=== PATIENT | male | born 1950 | race Caucasian/White ===

== ENCOUNTER 2022-05-16 16:37 | Inpatient (IN) | payer MEDICARE, OTHER, SELFPAY ==
[2022-05-16 16:43] VITALS: BP 175/108; PULSE 93; RESP 18; O2SAT 97; BMI 22.3
--- NOTE | 2022-05-16 16:47 | XRR_ITS ---
PROCEDURE INFORMATION: Exam: XR Left Hip Exam date and time: 05/16/2022 4:54 PM Age: 71 years old Clinical indication: Injury or trauma; Fall; Blunt trauma (contusions or hematomas); Left; Hip; Additional info: Eval FX, suspected hip FX TECHNIQUE: Imaging protocol: Radiologic exam of the Left hip. Views: 2 or 3 views hip with pelvis when performed. COMPARISON: No relevant prior studies available. FINDINGS: Bones/joints: Degenerative changes in the spine, sacroiliac joints, and hips. Mildly comminuted and mildly displaced inter trochanteric fracture of the left femur. No dislocation. Normal bone mineralization. Soft tissues: Mild soft tissue swelling around the proximal left femur. No radiopaque foreign body. XR/XR hip LT 2-3V wo/w pel* [id number] IMPRESSION: 1. Mildly comminuted and mildly displaced inter trochanteric fracture of the left femur. 2. Mild soft tissue swelling around the proximal left femur.
--- NOTE | 2022-05-16 17:02 | XR_ITS ---
WS: [id number] Exam: XR chest 1V portable [id number] Date/Time of Exam: 05/16/2022 5:05 PM Reason For Exam: PRE OP No priors. Findings: The lungs are clear and fully expanded. Costophrenic angles are sharp. No infiltrates. Bronchovascula r relief appears normal. Cardiac silhouette is unremarkable. Bony elements are intact. XR/XR chest 1V portable [id number] IMPRESSION: Unremarkable chest radiograph.
--- NOTE | 2022-05-16 17:13 | XRR_ITS ---
PROCEDURE INFORMATION: Exam: XR Left Femur Exam date and time: 05/16/2022 5:15 PM Age: 71 years old Clinical indication: Injury or trauma; Fall; Blunt trauma; Thigh or upper leg; Left; Additional info: Eval FX TECHNIQUE: Imaging protocol: Radiologic exam of the Left femur. Views: 2 views. COMPARISON: CR (PELVIS, ) 05/16/2022 4:54 PM FINDINGS: Bones/joints: Mild degenerative change at the left hip. Mildly comminuted and displaced intertrochanteric fracture of the left femur is stable. No dislocation. Normal bone mineralization. No joint effusion. Joint spaces are maintained. Soft tissues: Stable mild soft tissue swelling around the proximal left femur. No radiopaque foreign body. XR/XR femur LT 1V [id number] IMPRESSION: 1. Mildly comminuted and displaced intertrochanteric fracture of the left femur is stable. 2. Stable mild soft tissue swelling around the proximal left femur. 3. Incidental/nonacute findings are listed in the report.
[2022-05-16 17:28] LABS: Basophils % 0.6 %; Eosinophils # 0.1 10^3/uL (0.0-0.8); Eosinophils % 1.7 %; Hematocrit 44.1 % (42.0-52.0); Hemoglobin 14.6 g/dL (11.7-16.6); Lymphocytes # 1.5 10^3/uL (0.8-4.8); Lymphocytes % 21.9 %; Mean Corpuscular HGB Conc 33.1 g/dL (30.0-36.0); Mean Corpuscular Volume 90.6 fl (80-94); Mean Platelet Volume 11.1 fL (7.4-10.4); Monocytes # 0.5 10^3/uL (0.2-0.9); Monocytes % 7.4 %; Neutrophils # 4.77 10^3/uL (1.8-7.7); Neutrophils % 68.1 %; Nucleated Red Blood Cells % 0 %; Platelet Count 192 10^3/cmm (130-400); Red Blood Count 4.87 10^6/uL (4.1-5.3); Red Cell Distribution Width 11.8 % (12.1-15.1)
[2022-05-16 17:49] LABS: Anion Gap 15.2 (5-19); Blood Urea Nitrogen 16 mg/dL (8-23); Carbon Dioxide 27 mmol/L (22-29); Chloride 98 mmol/L (98-107); Glucose 221 mg/dL (65-115); Osmolality Calculated 290 mOsm/kg (285-295); Potassium 4.2 mmol/L (3.5-5.1); Sodium 136 mmol/L (136-145)
--- NOTE | 2022-05-16 17:53 | ED_ITS ---
HPI - Fall General: Chief Complaint: Fall Stated Complaint: LEFT HIP PAIN S/P FALL Time Seen by Provider: 05/16/22 16:41 History of Present Illness: 71-year-old male with past medical history of type 2 diabetes/prediabetes on metformin 5 mg twice daily, hypertension on lisinopril 10 mg daily, and pravastatin 40 mg daily, presents after falling off his tractor onto his left hip. He states he had immediate pain. This event occurred prior to arrival. Did not strike his head, chest, other areas of his body. Denies pain elsewhere. He has aching severe pain in his left hip, worse with movement, better with rest has not taken any pain medications at home for this. Associated symptoms-after fall: Denies abdominal pain, chest pain, headache(s) or neck pain Review of Systems General: Reports: 10 or more systems reviewed and unremarkable except in HPI and below Const: Denies: fever(s) or chills Eyes: Denies: change in vision or blurry vision ENMT: Denies: throat pain or uvular edema Card: Denies: chest pain or palpitations Resp: Denies: dyspnea or productive cough GI: Denies: abdominal pain, nausea or vomiting : Denies: flank pain or difficulty urinating Musc: Denies: neck pain or back pain Skin/Breast: Denies: rash or pruritus Neuro: Denies: headache(s) or numbness in extremities Physical Exam Const: COMMON NORMALS: no acute distress and average body habitus HENMT: COMMON NORMALS: normocephalic, atraumatic and Normal external nose present HEAD & SCALP: normocephalic and atraumatic FACE & SINUS: normal facial exam NOSE: Normal external nose present GENERAL EAR: hearing not grossly impaired MOUTH: Normal oral and palatal mucosa present THROAT: no uvular edema Eye: COMMON NORMALS: Equal, round and reactive pupils present, conjunctivae normal and no scleral icterus CONJUNCTIVA: Yes conjunctivae normal PUPIL: Yes Equal, round and reactive pupils present Neck/C-Spine: COMMON NORMALS: full ROM and no lymphadenopathy Chest: COMMONS NORMALS: normal inspection of the chest and normal palpation of entire chest wall Resp: COMMON NORMALS: normal respiratory effort and No retractions GI: COMMON NORMALS: Normal to inspection, nondistended, normoactive bowel sounds present and Soft to palpation PALPATION: Yes Soft to palpation Back/Pelvis: PELVIS: Yes buttocks normal Extremity: NARRATIVE EXTREMITY EXAM: Examination of left lower extremity demonstrates intact pulses, able to wiggle toes and flex and extend at the ankle and knee. Tense contracted muscle in the anterior proximal thigh. No enlarging hematoma on initial examination. Tenderness palpation of the greater trochanter of the left hip. Pelvis noncompressible. No tenderness of the right hip. Course Vital Signs: Vital signs: Vital Signs Pulse Rate 93 05/16/22 16:43 Respiratory Rate 18 05/16/22 16:43 Blood Pressure 175/108 05/16/22 16:43 Pulse Oximetry 97 05/16/22 16:43 Oxygen Delivery Me thod 05/16/22 16:43 MDM - Fall Medical Decision Making 71-year-old male with intertrochanteric hip fracture sustained during a fall without other sequelae of injury. Vitals nonactionable in the emergency department. Considered a large Heema Adolph, other fractures, pelvic injury, intra abdominal or retroperitoneal injury, thoracic injury, head injury, other traumatic injury sustained from a fall. Patient states he has no other injuries at this time other than pain in his left hip. New X-rays demonstrate hip fracture. On-call orthopedist Dr. Goodson consulted. Hospitalist Dr. Candelaria will admit this patient for pain control until surgery. Lab Data 05/16/22 17:07 05/16/22 17:07 Radiology Impressions Hip/Pelvis X-Ray 05/16/22 16:47 IMPRESSION: 1. Mildly comminuted and mildly displaced inter trochanteric fracture of the left femur. 2. Mild soft tissue swelling around the proximal left femur. Laboratory Results WBC 7.0 10^3/uL (4.0-10.0) 05/16/22 17:07 RBC 4.87 10^6/uL (4.1-5.3) 05/16/22 17:07 Hgb 14.6 g/dL (11.7-16.6) 05/16/22 17:07 Hct 44.1 % (42.0-52.0) 05/16/22 17:07 MCV 90.6 fl (80-94) 05/16/22 17:07 MCH 30.0 pg (28.0-34.0) 05/16/22 17:07 MCHC 33.1 g/dL (30.0-36.0) 05/16/22 17:07 RDW 11.8 % (12.1-15.1) L 05/16/22 17:07 Plt Count 192 10^3/cmm (130-400) 05/16/22 17:07 MPV 11.1 fL (7.4-10.4) H 05/16/22 17:07 Neut % (Auto) 68.1 % 05/16/22 17:07 Lymph % (Auto) 21.9 % 05/16/22 17:07 [place] % (Auto) 7.4 % 05/16/22 17:07 Eos % (Auto) 1.7 % 05/16/22 17:07 Baso % (Auto) 0.6 % 05/16/22 17:07 Neut # (Auto) 4.77 10^3/uL (1.8-7.7) 05/16/22 17:07 Lymph # (Auto) 1.5 10^3/uL (0.8-4.8) 05/16/22 17:07 [place] # (Auto) 0.5 10^3/uL (0.2-0.9) 05/16/22 17:07 Eos # (Auto) 0.1 10^3/uL (0.0-0.8) 05/16/22 17:07 Baso # (Auto) 0.0 10^3/uL (0.0-0.1) 05/16/22 17:07 Nucleated RBC % (auto) 0 % 05/16/22 17:07 Nucleated RBCs # 0.0 /100WBC 05/16/22 17:07 Sodium 136 mmol/L (136-145) 05/16/22 17:07 Potassium 4.2 mmol/L (3.5-5.1) 05/16/22 17:07 Chloride 98 mmol/L (98-107) 05/16/22 17:07 Carbon Dioxide 27 mmol/L (22-29) 05/16/22 17:07 Anion Gap 15.2 (5-19) 05/16/22 17:07 BUN 16 mg/dL (8-23) 05/16/22 17:07 Creatinine 0.8 mg/dL (0.7-1.2) 05/16/22 17:07 GFR Calculation Not Reportable 05/16/22 17:07 Glucose 221 mg/dL (65-115) H 05/16/22 17:07 Calculated Osmolality 290 mOsm/kg (285-295) 05/16/22 17:07 Calcium 10.0 mg/dL (8.5-10.5) 05/16/22 17:07 Discharge Plan Discharge Condition: Stable Prescriptions: No Action multivitamin Tablet 1 tab PO DAILY metformin 500 mg tablet 1,000 mg PO BID pravastatin 40 mg tablet 40 mg PO QAM Aspir-81 81 mg Tablet,Delayed Release (Dr/Ec) 81 mg PO DAILY@12 lisinopril 10 mg tablet 10 mg PO BEDTIME CoQ-10 100 mg Capsule 100 mg PO DAILY@12 sildenafil (pulm.hypertension) 20 mg tablet 20 - 80 mg PO PRN PRN (Reason: Erectile Dysfunction) red yeast rice 600 mg Tablet 600 mg PO TID Referrals: Laurent Roberson DO [Primary Care Provider] - Coding Level of Care Code ED Project Management Specialist for Ferming Lynda
[2022-05-16 18:30] VITALS: BP 160/95; PULSE 92; O2SAT 97
--- NOTE | 2022-05-16 18:45 | PC.NURSE ---
ATTEMPTED REPORT NURSE UNAVAILABLE.
--- NOTE | 2022-05-16 18:51 | PC.NURSE ---
REPORT GIVEN TO [facility]UM[facility]ARE.
[2022-05-16 19:04] VITALS: BP 148/95; PULSE 93; O2SAT 96
--- NOTE | 2022-05-16 19:08 | PC.NURSE ---
attempted to call report @ [phone]; receiving nurse will call back
[2022-05-16 19:23] VITALS: BP 148/95; PULSE 100; RESP 18; O2SAT 95
--- NOTE | 2022-05-16 20:20 | ECG_ITS ---
[facility] Test Date: 2022-05-17 Pat Name: Figueroa Garrett Department: Room: 262 Gender: Male System Sales Consultant: : 1950 Requested By: Duong Cobos Order Number: [id number] Hanny MD: Xena Cooney M.D. Measurements Intervals [place] Rate: 115 P: 52 NC: 143 QRS: -38 QRSD: 101 T: 61 QT: 302 QTc: 419 Interpretive Statements SINUS TACHYCARDIA LEFT AXIS DEVIATION [QRS AXIS < -30] INCOMPLETE RIGHT BUNDLE BRANCH BLOCK [90+ ms QRS DURATION, TERMINAL R IN V1/V2, 40+ ms S IN I/aVL/V4/V5/V6] No previous ECG available for comparison Electronically Signed On 05-17-2022 19:15:30 HOTEL FRONT DESK CLERK by Xena Cooney M.D. [email or web address] [email or web address] general [email or web address] [id number]
--- NOTE | 2022-05-16 20:21 | P.HP_ITS ---
Providers/Chief Complaint Admitting Physician: Duong Cobos Primary Care Provider: Laurent Roberson DO Chief Complaint: LEFT HIP PAIN S/P FALL History of Present Illness Pleasant 71-year-old gentleman was getting off the tractor when he somehow slipped off the step and fell on his left hip. He is found to have mildly comminuted and displaced intertrochanteric fracture of the left femur. Mild soft tissue swelling around the proximal left femur. Additional incidental sammie cute findings. She has otherwise been at baseline state of health, his chronic medical issues include hypertension, diabetes. Denies any other trauma. Aspirin 81 mg he takes prophylactically. Review of Systems Const: Denies: fever(s), chills, body aches or malaise Eyes: Denies: change in vision, eye discomfort or eye redness ENMT: Denies: throat pain, oral sores or ear or mastoid pain Card: Denies: chest pain, edema, pre-syncope or dyspnea on exertion Resp: Denies: dyspnea, productive cough, change in phlegm color or hemoptysis GI: Denies: abdominal pain, nausea, vomiting, diarrhea, constipation, hematochezia or melena : Denies: flank pain, difficulty urinating, urinary frequency or hematuria Musc: Denies: back pain, joint swelling or joint redness Skin/Breast: Denies: rash Neuro: Denies: headache(s) or confusion Endo: Denies: polyuria or polydipsia Martin/Lymph: Denies: easy bleeding Medications/Allergies Home Medications Medication Instructions Recorded Confirmed Last Taken Type aspirin 81 mg tablet,delayed 81 mg PO DAILY@05/16/22 05/16/22 05/16/22 History release coenzyme Q10 100 mg capsule 100 mg PO DAILY@05/16/22 05/16/22 05/16/22 History (CoQ-10) lisinopril 10 mg tablet 10 mg PO BEDTIME 05/16/22 05/16/22 05/15/22 History metformin 500 mg tablet 1,000 mg PO BID 05/16/22 05/16/22 05/16/22 08:00 History multivitamin 1 tab PO DAILY 05/16/22 05/16/22 Unknown History pravastatin 40 mg tablet 40 mg PO QAM 05/16/22 05/16/22 05/16/22 08:00 History red yeast rice 600 mg tablet 600 mg PO TID 05/16/22 05/16/22 05/16/22 12:00 History sildenafil (pulm.hypertension) 20 20 - 80 mg PO PRN PRN Erectile 05/16/22 05/16/22 Unknown History mg tablet Dysfunction Allergies Allergy/AdvReac Type Severity Reaction Status Date / Time No Known Allergies Allergy Verified 05/16/22 16:54 PFSH Acute PFSH: Medical History DM type 2 (diabetes mellitus, type 2) HTN (hypertension) Surgical History No significant past surgical history Family History Father CAD (coronary artery disease), Onset Age: 72 [place] Social History Smoking and tobacco status: never smoked Alcohol intake: never Substance/Drug Use: never Lives independently: Yes Household members: family Marital status: Vitals/I&O/Wt Last Vital Signs Pulse 100 05/16/22 19:23 Resp 18 05/16/22 19:23 BP 148/95 05/16/22 19:23 Pulse Ox 95 05/16/22 19:23 O2 Del Method 05/16/22 19:04 Weight last 48 hrs Weight 72.575 kg Physical Exam Narrative: and son at bedside Const: COMMON NORMALS: patient oriented x3 and alert GENERAL APPEARANCE: cooperative ORIENTATION/CONSCIOUSNESS: Yes awake HENMT: COMMON NORMALS: oropharynx normal Neck/C-Spine: COMMON NORMALS: no JVD Resp: COMMON NORMALS: normal respiratory effort and clear to auscultation bilaterally AUSCULTATION: clear to auscultation bilaterally Cardio: COMMON NORMALS: no JVD, regular rhythm, S1 normal heart sound present, S2 normal heart sound present and No murmurs present (Cardio) RHYTHM: regular rhythm HEART SOUNDS: S1 normal heart sound present and S2 normal heart sound present GI: COMMON NORMALS: Normal to inspection, nondistended, normoactive bowel sounds present, Soft to palpation and non-tender PALPATION: Yes Soft to palpation Extremity: COMMON NORMALS: no joint enlargement and no pedal edema OTHER: L hip without bruising or swelling. Leg appears perfused. Neuro: COMMON NORMALS: patient oriented x3 and moves all extremities SENSORIUM/ORIENTATION: Yes alert Skin: COMMON NORMALS: no rashes or lesions noted GENERAL SKIN EXAM: no rashes or lesions noted Data 05/16/22 17:07 05/16/22 17:07 A&P Assessment and plan (1) Intertrochanteric fracture of left hip: Discussed with ER physician. ER documentation reviewed. He would like to seek surgical repair possible, he is awaiting further assessment and discussion with orthopedics. He appears otherwise to have been at baseline state of health. He is active, without any dyspnea restricting his activity, denies any history of lung disease, heart disease. The 81 mg aspirin he takes is prophylactic. We will obtain EKG. Otherwise discussed with him slight ovation risk with DM2, HTN, but not much to optimize that should delay surgery. Monitor blood counts with risk of blood loss anemia possibly severe if bleeding into the thigh, also on aspirin, also with noted some soft tissue swelling around the proximal left femur on x-ray. Repeat hemoglobin requested. Hold lisinopril. N.p.o. tonight. 1 dose of heparin DVT prophylaxis in anticipation of surgery tomorrow. Further DVT prophylaxis after surgery. (2) DM type 2 (diabetes mellitus, type 2): A1c is 8.6. He states sugars ranging in 150s-160s usually. This morning it was 135. Monitor POC glucose while in the hospital with risk for hypoglycemia while n.p.o. and with insulin therapy. He takes metformin at home, mild sliding scale while in the hospital. CC diet (3) HTN (hypertension): Monitor blood pressures. Hold morning lisinopril anticipation of likely surgery. Attestations Medical Necessity Statement*: Admission of over 2 midnights anticipated for assessment management of left hip fracture and gentleman with underlying diabetes, hypertension. Other Coding Information Focused coding review requested Diagnoses Intertrochanteric fracture of left hip S72.142A DM type 2 (diabetes mellitus, type 2) E11.9 HTN (hypertension) I10
[2022-05-16 20:35] VITALS: BP 167/89; BP 173/95; PULSE 102; PULSE 97; RESP 17; RESP 18; TEMP 37.5; O2SAT 94; O2SAT 97
[2022-05-16] MEDS: HYDROcodone-acetaminophen 5-325 mg Tablet 1 TAB PO (22:15)
[2022-05-16 22:23] LABS: Glucose Point of Care 283 mg/dL (70-110)
[2022-05-16 22:57] LABS: Glucose Point of Care 303 mg/dL (70-110)
[2022-05-16] MEDS: heparin 5,000 unit/mL INJ 1 mL 5000 UNIT SUBCUT (22:59)
[2022-05-16] MEDS: insulin lispro 100 unit/1 mL SUBCUT (22:59)
[2022-05-17] VITALS (16 sets, daily range): BP systolic 128–164; BP diastolic 73–105; PULSE 90–123; RESP 14–94; TEMP 36.2–36.9; O2SAT 94–99
--- NOTE | 2022-05-17 | XR_ITS ---
WS: [id number] Exam: XR hip LT 2-3V wo/w pel* [id number] Date/Time of Exam: 05/17/2022 12:00 AM Reason For Exam: ORIF left hip Intraoperative C-arm images of the left hip are submitted for evaluation. An intertrochanteric fracture of the left hip is stabilized with an intramedullary brett and femoral ne ck screw. Alignment is satisfactory for healing. XR/XR hip LT 2-3V wo/w pel* [id number] IMPRESSION: 1. ORIF involving an intertrochanteric fracture of the left hip in satisfactory position for healing.
[2022-05-17 01:36] LABS: Add Urine Microscopic? NO; Charge for UA Resulting for Rev
[2022-05-17 01:59] LABS: Bilirubin Urine Neg (Negative); Blood Urine Neg (Negative); Glucose Urine UA 4+ (Normal); Ketones Urine Negative (Negative); Leukocyte Esterase Urine Negative (Negative); Nitrate Urine Negative (Negative); Protein Urine Neg (Negative); Urine Appearance Clear (CLEAR); Urine Color Yellow (Yellow); Urobilinogen Urine Neg (Negative); pH Urine 7 (5-7)
[2022-05-17 04:18] LABS: Basophils % 0.4 %; Eosinophils # 0.1 10^3/uL (0.0-0.8); Eosinophils % 0.5 %; Hematocrit 41.5 % (42.0-52.0); Lymphocytes # 2.2 10^3/uL (0.8-4.8); Mean Corpuscular HGB Conc 33.7 g/dL (30.0-36.0); Mean Corpuscular Hemoglobin 30.4 pg (28.0-34.0); Mean Platelet Volume 11.3 fL (7.4-10.4); Monocytes % 9.9 %; Neutrophils # 6.63 10^3/uL (1.8-7.7); Nucleated Red Blood Cells % 0 %; Platelet Count 182 10^3/cmm (130-400); Red Blood Count 4.61 10^6/uL (4.1-5.3); Red Cell Distribution Width 11.9 % (12.1-15.1); White Blood Count 9.9 10^3/uL (4.0-10.0)
[2022-05-17 04:45] LABS: Anion Gap 14.1 (5-19); Blood Urea Nitrogen 13 mg/dL (8-23); Calcium 9.6 mg/dL (8.5-10.5); Carbon Dioxide 24 mmol/L (22-29); Chloride 105 mmol/L (98-107); Glucose 159 mg/dL (65-115); Osmolality Calculated 291 mOsm/kg (285-295); Potassium 4.1 mmol/L (3.5-5.1); Sodium 139 mmol/L (136-145)
[2022-05-17] MEDS: atorvastatin 40 mg Tablet PO (05:13)
[2022-05-17 07:17] LABS: Glucose Point of Care 148 mg/dL (70-110)
[2022-05-17] MEDS: insulin lispro 100 unit/1 mL SUBCUT ×3 (08:01→21:10)
--- NOTE | 2022-05-17 10:17 | PC.CHAP ---
Pastoral Care Encounter/Spiritual Assessment Type of Contact [] Declined cane flume chute operator visit [] Patient/Family/Request visit [] Outpatient visit [] Follow-up visit [] Physician referral [] Code/Alert [x] Routine visit [] Staff referral [] Actively dying [] Patient sleeping [x] Family support [] [] Out of room [] Palliative care [] [] Receiving care in room [] Pre-surgical visit [] Trauma [] Long length of stay [] ICU visit [] Other: Relational/Emotional Strength [x] Patient feels connected with others/family/visitors/staff [] Distress [] Loneliness/isolation [] Abandonment Spirituality of Patient [x] Person of Eloina [x] Attends Mandaen of their Elo[place] [x] Believes in Prayer [] Reads Bible or Sabianism materials [] There are Spiritual issues to be addressed Carpenter Interventions [x] Prayer [x] Active listening [] Non-anxious presence [] Spiritual/emotional support [] Crisis/trauma care [] Spiritual counseling [] Bereavement support [] Provided bereavement packet [] Provided Bible/devotional materials [] Provided toy/stuffed animal, coloring book to patient or family member [] Provided Communion [] Anointing/[place] [] Salvation [x] Completed spiritual assessment [] Other: Impact on Illness or Injury [] Angry [] Fearful [] Anxious [] Often cries [] Exhaustion [] Unable to work [] Unable to attend taoism [] Unable to walk/stand [] Unable to read [] Unable to drive [] Unable to eat/drink [] Unable to sleep [] Unable to be with family [] Patient intubated [] Other: Summary Time spent with patient 5 min
[2022-05-17 10:58] LABS: Glucose Point of Care 181 mg/dL (70-110)
[2022-05-17] MEDS: morphine 4 mg/mL SDV 1 mL 2 MG IVP (12:59)
--- NOTE | 2022-05-17 13:24 | PM.CONSULT ---
Providers/Reason For Consult Consulting Physician/Specialty*: Milli Ventura MD Reason for Consult*: Left intertrochanteric hip fracture, comminuted Requesting Physician: Dr. Santos Alexander Attending Physician: Sue Dasilva MD Primary Care Provider: Laurent Roberson DO History of Present Illness History of Present Illness Figueroa Garrett is a 71 year old male who was in his usual state of health when he fell from the wheel of his tractor while placing fuel into it. He was admitted through the emergency department with a comminuted slightly displaced intertrochanteric fracture of the proximal femur. The patient denies other significant medical injury. He denies any reason for his fall other than slipping from the tractor wheel. Review of Systems General: Reports: 10 or more systems reviewed and unremarkable except in HPI and below Const: Denies: fever(s), chills, body aches or malaise Eyes: Denies: change in vision, blurry vision, eye discomfort or eye redness ENMT: Denies: throat pain, oral sores or ear or mastoid pain Card: Denies: chest pain, palpitations, edema, pre-syncope or dyspnea on exertion Resp: Denies: dyspnea, productive cough, change in phlegm color or hemoptysis GI: Denies: abdominal pain, nausea, vomiting, diarrhea, constipation, hematochezia or melena : Denies: flank pain, difficulty urinating, urinary frequency or hematuria Musc: Denies: neck pain, back pain, joint swelling or joint redness Skin/Breast: Denies: rash or pruritus Neuro: Denies: headache(s), numbness in extremities or confusion Endo: Denies: polyuria or polydipsia Martin/Lymph: Denies: easy bleeding Medications/Allergies Home Medications Medication Instructions Recorded Confirmed Last Taken Type aspirin 81 mg tablet,delayed 81 mg PO DAILY@05/16/22 05/16/22 05/16/22 History release coenzyme Q10 100 mg capsule 100 mg PO DAILY@05/16/22 05/16/22 05/16/22 History (CoQ-10) lisinopril 10 mg tablet 10 mg PO BEDTIME 05/16/22 05/16/22 05/15/22 History metformin 500 mg tablet 1,000 mg PO BID 05/16/22 05/16/22 05/16/22 08:00 History multivitamin 1 tab PO DAILY 05/16/22 05/16/22 Unknown History pravastatin 40 mg tablet 40 mg PO QAM 05/16/22 05/16/22 05/16/22 08:00 History red yeast rice 600 mg tablet 600 mg PO TID 05/16/22 05/16/22 05/16/22 12:00 History sildenafil (pulm.hypertension) 20 20 - 80 mg PO PRN PRN Erectile 05/16/22 05/16/22 Unknown History mg tablet Dysfunction Allergies Allergy/AdvReac Type Severity Reaction Status Date / Time No Known Allergies Allergy Verified 05/16/22 16:54 Current Medications Generic Name Dose Route Start Last Admin Trade Name Freq PRN Reason Stop Dose Admin Hydrocodone Bitart/Acetaminophen 1 tab 05/16/22 20:35 05/16/22 22:15 Hydrocodone-Acetaminophen 5-325 Mg Tablet PO 1 tab Q4H PRN Administration MODERATE TO SEVERE PAIN Atorvastatin Calcium 40 mg 05/17/22 06:00 05/17/22 05:13 Atorvastatin 40 Mg Tablet PO 40 mg QAM DAO Administration Insulin Human Lispro 0 unit 05/16/22 21:00 05/17/22 12:07 Insulin Lispro 100 Unit/1 Ml SUBCUT 6 unit WM&BEDTIME DAO Administration Protocol Morphine Sulfate 2 mg 05/16/22 20:35 05/17/22 12:59 Morphine 4 Mg/Ml Sdv 1 Ml IVP 2 mg Q4H PRN Administration SEVERE PAIN PFSH Acute PFSH: Medical History DM type 2 (diabetes mellitus, type 2) HTN (hypertension) Surgical History No significant past surgical history Family History Father CAD (coronary artery disease), Onset Age: 72 [place] Social History Smoking and tobacco status: never smoked Alcohol intake: never Substance/Drug Use: never Lives independently: Yes Household members: family Marital status: Vitals/I&O/Wt Last Vital Signs Temp 98.5 F 05/17/22 07:45 Pulse 106 H 05/17/22 07:45 Resp 20 H 05/17/22 12:59 BP 150/87 05/17/22 07:45 Pulse Ox 95 05/17/22 07:45 O2 Del Method 05/17/22 12:00 Weight last 48 hrs Weight 160 lb Physical Exam Const: COMMON NORMALS: no acute distress, average body habitus, patient oriented x3 and alert GENERAL APPEARANCE: cooperative and comfortable ORIENTATION/CONSCIOUSNESS: Yes awake HENMT: COMMON NORMALS: normocephalic and atraumatic HEAD & SCALP: normocephalic and atraumatic Eye: GENERAL EYE: appearance normal, both eyes and all related structures Chest: COMMONS NORMALS: normal inspection of the chest Resp: COMMON NORMALS: normal respiratory effort EFFORT & INSPECTION: Yes able to speak in complete sentences and Yes symmetric chest movement Extremity: LEFT LOWER EXTREMITY: Yes hip joint (Tender to any range of motion.) Left hip: Yes inspection (No significant bruising.), Yes palpation (Tender over hip.) and Yes neurovascular exam (Intact distally with no evidence of DVT.) Neuro: COMMON NORMALS: patient oriented x3 SENSORIUM/ORIENTATION: Yes alert Psych: COMMON NORMALS: mental status grossly normal APPEARANCE: Yes grossly normal ATTITUDE: Yes calm and Yes engaged ATTENTION/CONCENTRATION: Yes attention grossly intact Skin: COMMON NORMALS: no rashes or lesions noted GENERAL SKIN EXAM: no rashes or lesions noted Data 05/17/22 03:02 05/17/22 03:02 Xray Ortho: My impression: X-rays were personally reviewed by me, an AP pelvis along with left hip demonstrates there is a comminuted intratrochanteric hip fracture. There is minimal displacement as well as minimal angulation. Other data: Laboratory is reviewed, and there are no significant abnormal findings. Glucose is 4+ in the urine with a high nonfasting glucose as well. A&P Assessment and plan (1) Intertrochanteric fracture of left hip: Patient was admitted through the emergency department last evening after falling from his tractor onto his left hip. In the emergency department, he was found to have a minimally comminuted and slightly displaced left intertrochanteric hip fracture. He was unable to ambulate, and I was asked to see the patient for evaluation for possible surgical intervention. The patient is seen in the room with his family. Risks and complications of surgery are discussed. Questions were answered. Evaluation is undertaken. The patient understands that we will be performing a gamma nail to the left hip. He has consented for the surgical procedure. Qualifiers: Encounter type: initial encounter Fracture type: closed Fracture alignment: displaced Qualified Code(s): S72.142A - Displaced intertrochanteric fracture of left femur, initial encounter for closed fracture Consult Attestations Medical Necessity Statement: Ongoing care for left intertrochanteric hip fracture. Coding Level of Care Code Acute Code for [facility] Diagnoses Intertrochanteric fracture of left hip S72.142A Encounter type: initial encounter Fracture type: closed Fracture alignment: displaced
[2022-05-17 15:57] LABS: Glucose Point of Care 114 mg/dL (70-110)
--- NOTE | 2022-05-17 15:58 | P.ANESASSM_ITS ---
Pre-Anesthetic Assessment Height/Weight: Height 1.8 m Weight 72.575 kg Temp Pulse Resp BP Pulse Ox O2 Del Method 97.6 F 111 H 15 128/78 95 05/17/22 15:51 05/17/22 15:51 05/17/22 15:51 05/17/22 15:51 05/17/22 15:51 05/17/22 15:51 Preop Diagnosis: Left intertrochanteric hip fracture Operation Date: 05/17/22 16:30 Proposed Procedures p Trochanteric Femoral Nail(Left) - Milli Ventura MD Familial anesthetic complications: None Was Beta Jerel taken within 24 hours: N/A Was Clonidine taken within 24 hours: N/A Last intake: > 8hrs Social No alcohol and No tobacco Exam alert, oriented x 3, clear to auscultation bilaterally and regular rate & rhythm Airway Mallampati: Class II Dentition: full Pulmonary None reported CV/HEM Hypertension able to avheive > 4 METS Metabolic Diabetes Mellitus and Hyperlipidemia Anesthetic Plan ASA status: 2 Anesthesia: General Risk of > 500 ml blood loss (7ml/kg in children): No Medications/Allergies Home Medications Medication Instructions Recorded Confirmed Last Taken Type aspirin 81 mg tablet,delayed 81 mg PO DAILY@12 05/16/22 05/16/22 05/16/22 History release coenzyme Q10 100 mg capsule 100 mg PO DAILY@12 05/16/22 05/16/22 05/16/22 History (CoQ-10) lisinopril 10 mg tablet 10 mg PO BEDTIME 05/16/22 05/16/22 05/15/22 History metformin 500 mg tablet 1,000 mg PO BID 05/16/22 05/16/22 05/16/22 08:00 History multivitamin 1 tab PO DAILY 05/16/22 05/16/22 Unknown History pravastatin 40 mg tablet 40 mg PO QAM 05/16/22 05/16/22 05/16/22 08:00 History red yeast rice 600 mg tablet 600 mg PO TID 05/16/22 05/16/22 05/16/22 12:00 History sildenafil (pulm.hypertension) 20 20 - 80 mg PO PRN PRN Erectile 05/16/22 05/16/22 Unknown History mg tablet Dysfunction Allergies Allergy/AdvReac Type Severity Reaction Status Date / Time No Known Allergies Allergy Verified 05/16/22 16:54 Current Medications Generic Name Dose Route Start Last Admin Trade Name Freq PRN Reason Stop Dose Admin Hydrocodone Bitart/Acetaminophen 1 tab 05/16/22 20:35 05/16/22 22:15 Hydrocodone-Acetaminophen 5-325 Mg Tablet PO 1 tab Q4H PRN Administration MODERATE TO SEVERE PAIN Atorvastatin Calcium 40 mg 05/17/22 06:00 05/17/22 05:13 Atorvastatin 40 Mg Tablet PO 40 mg QAM DAO Administration Insulin Human Lispro 0 unit 05/16/22 21:00 05/17/22 12:07 Insulin Lispro 100 Unit/1 Ml SUBCUT 6 unit WM&BEDTIME DAO Administration Protocol Morphine Sulfate 2 mg 05/16/22 20:35 05/17/22 12:59 Morphine 4 Mg/Ml Sdv 1 Ml IVP 2 mg Q4H PRN Administration SEVERE PAIN PFSH Anesthesia Medical History DM type 2 (diabetes mellitus, type 2) HTN (hypertension) Surgical History No significant past surgical history Family History Father CAD (coronary artery disease), Onset Age: 72 [place] Social History Smoking and tobacco status: never smoked Alcohol intake: never Substance/Drug Use: never Lives independently: Yes Household members: family Marital status: Data Anesthesia 05/17/22 03:02 05/17/22 03:02 Short CBC 05/16/22 05/17/22 Range/Units 17:07 03:02 WBC 7.0 9.9 (4.0-10.0) 10^3/uL Hgb 14.6 14.0 (11.7-16.6) g/dL Hct 44.1 41.5 L (42.0-52.0) % MCV 90.6 90.0 (80-94) fl Plt Count 192 182 (130-400) 10^3/cmm Neut % (Auto) 68.1 67.0 % Neut # (Auto) 4.77 6.63 (1.8-7.7) 10^3/uL BMP 05/16/22 05/17/22 17:07 03:02 Sodium 136 139 Potassium 4.2 4.1 Chloride 98 105 Carbon Dioxide 27 24 BUN 16 13 Creatinine 0.8 0.9 Glucose 221 H 159 H Calcium 10.0 9.6 Urine 05/17/22 Range/Units 01:08 Urine Color Yellow (Yellow) Urine Appearance Clear (CLEAR) Urine pH 7 (5-7) Ur Specific [place] 1.010 (1.005-1.030) Urine Protein Neg (Negative) Urine Glucose (UA) 4+ H (Normal) Urine Ketones Negative (Negative) Urine Nitrate Negative (Negative) Urine Bilirubin Neg (Negative) Ur Leukocyte Esterase Negative (Negative) Cardiac Studies: No Data to Display
[2022-05-17] MEDS: gabapentin 300 mg Capsule PO (16:09)
[2022-05-17] MEDS: lactated ringers 500 ML IV (16:09)
[2022-05-17] MEDS: acetaminophen 1,000 MG/100 ML PIGGYBACK 400 MG IV (16:09)
[2022-05-17] MEDS: CELEcoxib 200 mg Capsule 400 MG PO (16:09)
[2022-05-17] MEDS: ceFAZolin 2,000 MG in sodium chloride 0.9% (plus) 50 ML 100 MG IV (16:52)
--- NOTE | 2022-05-17 16:58 | PM.PN ---
Subjective Subjective: No new complaints today. Seen prior to being taken for OR. States that pain is currently under well control. Vitals/I&O/Wt Last Vital Signs Temp 98.4 F 05/17/22 15:59 Pulse 115 H 05/17/22 15:59 Resp 18 05/17/22 15:59 BP 164/105 05/17/22 15:59 Pulse Ox 96 05/17/22 15:59 O2 Del Method 05/17/22 15:59 05/17/22 05/17/22 05/17/22 06:59 14:59 22:59 Intake Total 100 / 100 Balance 100 / 100 Weight last 48 hrs Weight 72.575 kg Physical Exam Narrative: General: No acute distress, AO x3 HEENT: PERRLA, pupils bilaterally equal and reactive, pallors not present Chest: Normal vesicular breath sounds, no added sounds, equal good air entry bilaterally CVS: S1-S2 regular, no murmurs, no tachycardia, no gallops, no rubs Abdomen: Soft, nontender, no organomegaly, bowel sounds present Neuro: No focal deficits, no facial deformity, AO x3, power 5/5 in all limbs Data 05/17/22 03:02 05/17/22 03:02 A&P Assessment and plan (1) Intertrochanteric fracture of left hip: Plan to be taken to the OR this evening. He appears otherwise to have been at baseline state of health. He is active, without any dyspnea restricting his activity, denies any history of lung disease, heart disease. The 81 mg aspirin he takes is prophylactic. We will obtain EKG. Otherwise discussed with him slight ovation risk with DM2, HTN, but not much to optimize that should delay surgery. Monitor blood counts with risk of blood loss anemia possibly severe if bleeding into the thigh, also on aspirin, also with noted some soft tissue swelling around the proximal left femur on x-ray. Repeat hemoglobin requested. Hold lisinopril. N.p.o. tonight. 1 dose of heparin DVT prophylaxis in anticipation of surgery tomorrow. Further DVT prophylaxis after surgery. Qualifiers: Encounter type: initial encounter Fracture type: closed Fracture alignment: displaced Qualified Code(s): S72.142A - Displaced intertrochanteric fracture of left femur, initial encounter for closed fracture (2) DM type 2 (diabetes mellitus, type 2): A1c is 8.6. He states sugars ranging in 150s-160s usually. This morning it was 135. Monitor POC glucose while in the hospital with risk for hypoglycemia while n.p.o. and with insulin therapy. He takes metformin at home, mild sliding scale while in the hospital. CC diet (3) HTN (hypertension): Monitor blood pressures. Hold morning lisinopril anticipation of likely surgery. Attestations Medical Necessity Statement*: Surgical fixation for his fracture today Coding Level of Care Code Acute Code for Chg Fwd Straight Forward/Low MDM includes number and complexity of problems actively addressed during encounter, amount and/or complexity of data reviewed/ordered and described risk of complication, morbidity or mortality of management as documented Diagnoses Intertrochanteric fracture of left hip S72.142A Encounter type: initial encounter Fracture type: closed Fracture alignment: displaced DM type 2 (diabetes mellitus, type 2) E11.9 HTN (hypertension) I10
[2022-05-17] MEDS: ceFAZolin 1,000 mg SDV 1000 MG IRRIGATION (17:49)
--- NOTE | 2022-05-17 18:40 | P.OP_ITS ---
Operative Report Date of procedure: May 17, 2022 Pre-op diagnosis: Left intertrochanteric hip fracture Post-op diagnosis: Left intertrochanteric hip fracture Procedure done: Open reduction internal fixation of the left intertrochanteric hip fracture Implants: Deniz gamma 3 trochanteric nail size 11 mm x 180 mm x 125 degrees with a 10.5 mm x 105 mm lag screw and a distal 5 mm x 40 mm distal locking screw Pathology: none sent Surgeon: Milli Ventura Inspector Aluminum Boat: None Anesthesia: General (Per LMA, ASA 3) Estimated blood loss (mL): 50 IV fluids (mL): 800 Urine output (mL): 300 Complications: None Findings: Mildly displaced and angulated left intertrochanteric hip fracture with slight comminution Condition: stable Disposition: PACU (Then return to floor for postoperative rehabilitation) Brief History: Figueroa Garrett is a 71 year old male who was in his usual state of health when he fell from the wheel of his tractor while placing fuel into it.? He was admitted through the emergency department with a comminuted slightly displaced intertrochanteric fracture of the proximal femur.? The patient denies other significant medical injury.? He denies any reason for his fall other than slipping from the tractor wheel. The patient was seen in his room with his family prior to the surgical procedure. Risks and complications of the surgery were discussed as well as surgical options. The patient was consented for the surgery and consents were signed. Procedure: Patient was brought to the operating theater. After undergoing adequate general anesthesia with LMA, ASA 3, the patient was transferred to the fracture table, positioned on the table and fluoroscopic guidance obtained throughout the surgical procedure. Prior to the commencement of the surgical procedure, a surgical pause was performed. At the time of the surgical pause, we confirmed the site and side of surgery as well as preoperative surgical markings and appropriate and timely administration of IV antibiotics, Ancef 2 gm. Availability of equipment was also confirmed. Fluoroscopy was used to confirm the fracture was appropriately reduced in both AP and lateral planes. An incision was then made slightly above the greater trochanter to allow access to the greater trochanter. An awl was used to enter the greater trochanter, and a guidewire was subsequently placed. Once the guidewire was confirmed to be in appropriate position in AP and lateral planes, reaming was accomplished over this to allow for the proximal diameter of the nail.? Guidewire was then removed and an 11 mm nail was placed into appropriate position with positioning being confirmed in AP and lateral planes on the x-ray. It passed without difficulty. Guidewire was then passed through the jigging system into the femoral head. We wanted to be center or slightly inferior and posterior to center. Guidewire was placed into appropriate position. Once the guidewire was in appropriate position, this position was confirmed by x-ray.? This was then measured and we chose a 10.5 mm by 105 mm lag screw.? We reamed to allow for the lag screw to be placed. The 105 mm lag screw was then passed into the femoral head through the trochanteric nail. This was passed uneventfully and again position was confirmed in AP and lateral planes. Compression was obtained under fluoroscopic guidance.? The set screw was then placed in position, tightened completely, and subsequently backed off one-quarter turn. The construct was left in position and attention was directed distally. Cannulas were again used to determine appropriate placement for the distal screw. This was placed in position without difficulty. It was measured off of the drill. The appropriate length screw was then obtained and placed in position without difficulty. Once the screw was in position, we confirmed appropriate placement of the components, and we removed the jigging system. Attention was then directed to closure. The hip was copiously irrigated with normal saline with antibiotics. Following this it was dried and closed. Incision was injected with half percent bupivacaine with epinephrine. Tensor fascia elvia was closed proximally with 0 Vicryl in an interrupted fashion. Subcutaneous tissues were closed with 2-0 Monocryl, and the skin was closed with a continuous 3-0 Monocryl subcuticular stitch. This was then covered with Tegaderm. The patient was removed from the fracture table and returned to recovery in satisfactory condition. The patient will be discharged to the floor for postoperative rehabilitation and pain management. There were no specimens obtained. Related Problem List Diagnoses (1) Intertrochanteric fracture of left hip:
--- NOTE | 2022-05-17 19:00 | ANE.PACU2 ---
Inpatient post-anesthesia follow up: Airway intact: Yes Vital signs: Temperature 97.6 F Pulse Rate 98 Respiratory Rate 16 Blood Pressure 120/77 Pulse Oximetry 96 Oxygen Delivery Me thod Room Air Oxygen Flow Rate 6 Fraction of Inspir ed Oxygen Hydration adequate: Yes Nausea and vomiting: No Pain level: 1 Mental status: Baseline
--- NOTE | 2022-05-17 19:16 | SUR.PHASEI ---
1835 SCD to right leg and foot pump to left leg. Both on pump and pump working.
[2022-05-17 21:00] LABS: Glucose Point of Care 212 mg/dL (70-110)
[2022-05-17] MEDS: oxyCODONE 5 mg IR Tab/Cap PO (21:10)
[2022-05-17 21:36] LABS: Glucose Point of Care 223 mg/dL (70-110)
[2022-05-18] VITALS: BP 132/79; PULSE 85; RESP 16; TEMP 36.9; O2SAT 91
[2022-05-18] MEDS: acetaminophen 500 mg Tablet 1000 MG PO ×2 (01:17→08:05)
[2022-05-18] MEDS: ceFAZolin 2,000 MG in sodium chloride 0.9% (plus) 50 ML 100 MG IV ×2 (01:18→08:04)
[2022-05-18 04:00] VITALS: BP 120/77; PULSE 98; RESP 16; TEMP 36.4; O2SAT 96
[2022-05-18 05:23] LABS: Basophils % 0.2 %; Hematocrit 40.2 % (42.0-52.0); Hemoglobin 13.2 g/dL (11.7-16.6); Lymphocytes # 1.2 10^3/uL (0.8-4.8); Lymphocytes % 10.4 %; Mean Corpuscular HGB Conc 32.8 g/dL (30.0-36.0); Mean Corpuscular Hemoglobin 29.8 pg (28.0-34.0); Mean Corpuscular Volume 90.7 fl (80-94); Mean Platelet Volume 11.1 fL (7.4-10.4); Monocytes # 0.8 10^3/uL (0.2-0.9); Monocytes % 6.6 %; Neutrophils # 9.56 10^3/uL (1.8-7.7); Neutrophils % 82.5 %; Nucleated Red Blood Cells % 0 %; Platelet Count 162 10^3/cmm (130-400); Red Blood Count 4.43 10^6/uL (4.1-5.3); Red Cell Distribution Width 11.7 % (12.1-15.1); White Blood Count 11.6 10^3/uL (4.0-10.0)
[2022-05-18 05:49] LABS: Anion Gap 18.4 (5-19); Blood Urea Nitrogen 13 mg/dL (8-23); Carbon Dioxide 19 mmol/L (22-29); Chloride 102 mmol/L (98-107); Glucose 199 mg/dL (65-115); Osmolality Calculated 286 mOsm/kg (285-295); Potassium 4.4 mmol/L (3.5-5.1); Sodium 135 mmol/L (136-145)
[2022-05-18] MEDS: atorvastatin 40 mg Tablet PO (05:50)
[2022-05-18 06:22] LABS: Glucose Point of Care 182 mg/dL (70-110)
[2022-05-18 06:36] LABS: Glucose Point of Care 185 mg/dL (70-110)
[2022-05-18 08:00] VITALS: BP 136/86; PULSE 92; RESP 17; O2SAT 95
[2022-05-18] MEDS: insulin lispro 100 unit/1 mL SUBCUT ×2 (08:04→12:34)
[2022-05-18] MEDS: aspirin 325 mg EC Tablet PO (08:05)
[2022-05-18] MEDS: multivitamin therapeutic Tablet 1 TAB PO (08:05)
[2022-05-18] MEDS: CELEcoxib 200 mg Capsule PO (08:05)
[2022-05-18 09:37] VITALS: RESP 14
[2022-05-18] MEDS: oxyCODONE 5 mg IR Tab/Cap PO (09:37)
[2022-05-18 11:29] LABS: Glucose Point of Care 394 mg/dL (70-110)
[2022-05-18 11:29] LABS: Glucose Point of Care 385 mg/dL (70-110)
[2022-05-18 11:34] VITALS: BP 138/78; PULSE 113; RESP 17; TEMP 36.8; O2SAT 96
--- NOTE | 2022-05-18 14:30 | P.DS_ITS ---
Discharge Providers Date of Admission: 05/16/22 17:50 Date of Discharge: May 18, 2022 Attending Provider at Admission: Duong Cobos Attending Provider at Discharge: Sue Dasilva MD Consults: Milli Ventura MD, orthopedics Primary Care Provider: Laurent Roberson DO Diagnoses at Discharge Discharge Diagnosis (1) Intertrochanteric fracture of left hip: Status: Acute Qualifiers: Encounter type: initial encounter Fracture type: closed Fracture alignment: displaced Qualified Code(s): S72.142A - Displaced intertrochanteric fracture of left femur, initial encounter for closed fracture Reason for Visit Reason for Visit: LEFT HIP PAIN S/P FALL Brief History: Pleasant 71-year-old gentleman was getting off the tractor when he somehow slipped off the step and fell on his left hip.? He is found to have mildly comminuted and displaced intertrochanteric fracture of the left femur.? Mild soft tissue swelling around the proximal left femur.? Additional incidental nonacute findings. She has otherwise been at baseline state of health, his chronic medical issues include hypertension, diabetes. Denies any other trauma. Aspirin 81 mg he takes prophylactically. Hospital Course Hospital Course Patient was admitted to the hospital for intertrochanteric fracture of the left femur. He underwent open reduction internal fixation with Dr. Goodson on May 17, 2022. He tolerated the procedure well. No acute perioperative complications. Hemoglobin remained stable. He was able to participate with physical therapy and has been recommended a home exercise program at discharge. Patient was noted to be ambulating independently within the room. He is being discharged today in stable condition. Can continue his home doses of aspirin, lisinopril, metformin and statins at discharge. Physical Exam Narrative: General: No acute distress, AO x3 HEENT: PERRLA, pupils bilaterally equal and reactive, pallors not present Chest: Normal vesicular breath sounds, no added sounds, equal good air entry bilaterally CVS: S1-S2 regular, no murmurs, no tachycardia, no gallops, no rubs Abdomen: Soft, nontender, no organomegaly, bowel sounds present Neuro: No focal deficits, no facial deformity, AO x3, power 5/5 in all limbs Urinary Catheter Management: Carl: Cath Placed During This Visit: yes, but has since been removed by the nurse Reason for Continuing Indwelling Catheter: Perioperative Use in Selected Surgeries Urinary Catheter Date of Insertion: 05/17/22 Urinary Catheter Time of Insertion: 17:10 Date Urinary Catheter Removed: 05/18/22 Time Urinary Catheter Discontinued: 06:30 Discharge Data Studies Completed and Pending Completed Studies During Hospitalization Category Date Time Status CXRP [XR chest 1V portable [id number]] Stat Exams 05/16/22 17:02 Completed XR femur LT 1V [id number] Stat Exams 05/16/22 17:13 Completed XR hip LT 2-3V wo/w pel* [id number] Routine Exams 05/17/22 Completed XR hip LT 2-3V wo/w pel* [id number] Stat Exams 05/16/22 16:47 Completed Pending at discharge Category Date Time Status C-arm Fluoroscopy [id number] Routine Exams 05/17/22 15:57 Taken Basic Metabolic Panel AM LABS Lab 05/19/22 04:00 Ordered Complete Blood Count w/Auto AM LABS Lab 05/19/22 04:00 Ordered Radiology Impressions Chest X-Ray 05/16/22 17:02 IMPRESSION: Unremarkable chest radiograph. Femur X-Ray 05/16/22 17:13 IMPRESSION: 1. Mildly comminuted and displaced intertrochanteric fracture of the left femur is stable. 2. Stable mild soft tissue swelling around the proximal left femur. 3. Incidental/nonacute findings are listed in the report. Hip/Pelvis X-Ray 05/17/22 00:00 IMPRESSION: 1. ORIF involving an intertrochanteric fracture of the left hip in satisfactory position for healing. Laboratory Results WBC 11.6 10^3/uL (4.0-10.0) H 05/18/22 05:02 RBC 4.43 10^6/uL (4.1-5.3) 05/18/22 05:02 Hgb 13.2 g/dL (11.7-16.6) 05/18/22 05:02 Hct 40.2 % (42.0-52.0) L 05/18/22 05:02 MCV 90.7 fl (80-94) 05/18/22 05:02 MCH 29.8 pg (28.0-34.0) 05/18/22 05:02 MCHC 32.8 g/dL (30.0-36.0) 05/18/22 05:02 RDW 11.7 % (12.1-15.1) L 05/18/22 05:02 Plt Count 162 10^3/cmm (130-400) 05/18/22 05:02 MPV 11.1 fL (7.4-10.4) H 05/18/22 05:02 Neut % (Auto) 82.5 % 05/18/22 05:02 Lymph % (Auto) 10.4 % 05/18/22 05:02 [place] % (Auto) 6.6 % 05/18/22 05:02 Eos % (Auto) 0.0 % 05/18/22 05:02 Baso % (Auto) 0.2 % 05/18/22 05:02 Neut # (Auto) 9.56 10^3/uL (1.8-7.7) H 05/18/22 05:02 Lymph # (Auto) 1.2 10^3/uL (0.8-4.8) 05/18/22 05:02 [place] # (Auto) 0.8 10^3/uL (0.2-0.9) 05/18/22 05:02 Eos # (Auto) 0.0 10^3/uL (0.0-0.8) 05/18/22 05:02 Baso # (Auto) 0.0 10^3/uL (0.0-0.1) 05/18/22 05:02 Nucleated RBC % (auto) 0 % 05/18/22 05:02 Nucleated RBCs # 0.0 /100WBC 05/18/22 05:02 Sodium 135 mmol/L (136-145) L 05/18/22 05:02 Potassium 4.4 mmol/L (3.5-5.1) 05/18/22 05:02 Chloride 102 mmol/L (98-107) 05/18/22 05:02 Carbon Dioxide 19 mmol/L (22-29) L 05/18/22 05:02 Anion Gap 18.4 (5-19) 05/18/22 05:02 BUN 13 mg/dL (8-23) 05/18/22 05:02 Creatinine 0.9 mg/dL (0.7-1.2) 05/18/22 05:02 GFR Calculation Not Reportable 05/18/22 05:02 Glucose 199 mg/dL (65-115) H 05/18/22 05:02 POC Glucose 385 mg/dL (70-110) H 05/18/22 11:00 Calculated Osmolality 286 mOsm/kg (285-295) 05/18/22 05:02 Calcium 9.0 mg/dL (8.5-10.5) 05/18/22 05:02 Urine Color Yellow (Yellow) 05/17/22 01:08 Urine Appearance Clear (CLEAR) 05/17/22 01:08 Urine pH 7 (5-7) 05/17/22 01:08 Ur Specific [place] 1.010 (1.005-1.030) 05/17/22 01:08 Urine Protein Neg (Negative) 05/17/22 01:08 Urine Glucose (UA) 4+ (Normal) H 05/17/22 01:08 Urine Ketones Negative (Negative) 05/17/22 01:08 Urine Blood Neg (Negative) 05/17/22 01:08 Urine Nitrate Negative (Negative) 05/17/22 01:08 Urine Bilirubin Neg (Negative) 05/17/22 01:08 Urine Urobilinogen Neg mg/dL (Negative) 05/17/22 01:08 Ur Leukocyte Esterase Negative (Negative) 05/17/22 01:08 Vitals Last Vital Signs Temp 98.3 F 05/18/22 11:34 Pulse 113 H 05/18/22 11:34 Resp 17 05/18/22 11:34 BP 138/78 05/18/22 11:34 Pulse Ox 96 05/18/22 11:34 O2 Del Method 05/18/22 11:34 O2 Flow Rate 6 05/17/22 18:35 Discharge Plan Discharge Patient Disposition: Home Condition: Stable Prescriptions: New hydrocodone-acetaminophen 5-325 mg Tablet 1 tab PO Q8H PRN (Reason: Moderate To Severe Pain) 5 Days Qty: 15 0RF Continued multivitamin Tablet 1 tab PO DAILY metformin 500 mg tablet 1,000 mg PO BID pravastatin 40 mg tablet 40 mg PO QAM Aspir-81 81 mg Tablet,Delayed Release (Dr/Ec) 81 mg PO DAILY@12 lisinopril 10 mg tablet 10 mg PO BEDTIME CoQ-10 100 mg Capsule 100 mg PO DAILY@12 sildenafil (pulm.hypertension) 20 mg tablet 20 - 80 mg PO PRN PRN (Reason: Erectile Dysfunction) red yeast rice 600 mg Tablet 600 mg PO TID Discharge Orders: Discharge Order (Routine); Ordered 05/18/22 Ordered By: Sue Dasilva Other Ambulatory Orders: DME: Walker (Order) Location: None Selected Ordered By: Sue Dasilva Physical Therapy Eval and Treat Outpatient (Order) Timeframe: 2 Days Facility: [facility] - Location: Physical Therapy [place] Ordered By: Sue Dasilva Referrals: Laurent Roberson DO [Primary Care Provider] - Milli Ventura MD [Physician] - 2 weeks Patient Instructions: Opioid Safety Discharge Attestations Time Spent in Discharge Care*: greater than 30 min Quality Metrics Clinical Quality Measures [ No reported AMI, CVA or VTE this stay] Coding Level of Care Code Acute Code for [facility] Fwd Diagnoses Intertrochanteric fracture of left hip S72.142A Encounter type: initial encounter Fracture type: closed Fracture alignment: displaced
[2022-05-18 15:55] LABS: Glucose Point of Care 255 mg/dL (70-110)
== END 2022-05-18 15:00 | disposition home or self-care (01) | DRG 482 ==
LOC: ER 17:55 → MEDSURG 18:26
PROVIDERS: Specialist; Admitting Provider Internal Medicine; Emergency Provider General Practice; PCP Internal Medicine; Visit Provider Student in an Organized Health Care Education/Training Program
PROC: 0QH736Z Insertion of Intramedullary Internal Fixation Device into Left Upper Femur, Percutaneous Approach (ICD-10-PCS; CPT 27245; principal; 2022-05-17 16:30)
DX: S72.142A Displaced intertrochanteric fracture of left femur, initial encounter for closed fracture (principal); W17.89XA Other fall from one level to another, initial encounter; Z79.84 Long term (current) use of oral hypoglycemic drugs; Z79.82 Long term (current) use of aspirin; I10 Essential (primary) hypertension; E11.9 Type 2 diabetes mellitus without complications
CPT/HCPCS: 36415; 36416; 51702; 71045; 73502; 73551; 76000; 80048; 81003; 82962; 85025; 93005; 96372; 97110; 97116; 97161; 97165; 99285; C1713; J0131; J0690; J1100; J1644; J1815; J2270; J2405; J2704; J3010; J7120

== ENCOUNTER → 2022-06-02 09:36 | Outpatient (BNVA) | payer MEDICARE, OTHER, SELFPAY | PROVIDERS: PCP Internal Medicine; Visit Provider Nurse Practitioner Family | DX: S72.142A Displaced intertrochanteric fracture of left femur, initial encounter for closed fracture (principal); Z98.890 Other specified postprocedural states; X58.XXXA Exposure to other specified factors, initial encounter | CPT/HCPCS: 73502; 99024 ==

== ENCOUNTER 2022-06-15 08:13 | Outpatient (RCR) | payer MEDICARE, OTHER, SELFPAY | END 2022-06-25 23:59 | disposition home or self-care (01) | LOC: SPT 08:13 | PROVIDERS: PCP Internal Medicine; Visit Provider Specialist | DX: Z47.89 Encounter for other orthopedic aftercare (principal) | CPT/HCPCS: 97110; 97161 ==

== ENCOUNTER → 2022-07-01 10:02 | Outpatient (BNVA) | payer MEDICARE, OTHER, SELFPAY | PROVIDERS: PCP Internal Medicine; Visit Provider Nurse Practitioner Family | DX: Z98.890 Other specified postprocedural states (principal); S72.142A Displaced intertrochanteric fracture of left femur, initial encounter for closed fracture; X58.XXXA Exposure to other specified factors, initial encounter | CPT/HCPCS: 73502; 99024; 99213 ==

== ENCOUNTER → 2023-01-06 10:58 | Outpatient (BNVA) | payer MEDICARE, OTHER, SELFPAY | PROVIDERS: PCP Internal Medicine; Visit Provider Physician Assistant | DX: Z98.890 Other specified postprocedural states; Z87.81 Personal history of (healed) traumatic fracture; S72.142D Displaced intertrochanteric fracture of left femur, subsequent encounter for closed fracture with routine healing; X58.XXXD Exposure to other specified factors, subsequent encounter | CPT/HCPCS: 73502; 99213 ==

== ENCOUNTER → 2023-07-21 09:02 | Outpatient (BNVA) | payer MEDICARE, OTHER, SELFPAY | PROVIDERS: PCP Internal Medicine; Visit Provider Physician Assistant | DX: Z98.890 Other specified postprocedural states (principal); Z87.81 Personal history of (healed) traumatic fracture | CPT/HCPCS: 73502; 99213 ==